=== PATIENT | male | born 1960 | race Caucasian/White ===

== ENCOUNTER 2023-12-15 18:30 | Emergency (ER) | payer SELFPAY ==
[~2023-12-15] VITALS: Ht 182.9 cm; Wt 98.0 kg
[2023-12-15 18:35] VITALS: O2SAT 100
[2023-12-15] MEDS ORDERED: LIDOCAINE HCL/PF 1% 10 MG/ML 5ML VIAL INFIL ONE (19:45)
[2023-12-15] MEDS: IBUPROFEN 600MG TABLET PO ONE (20:36)
[2023-12-15] MEDS ORDERED: IBUP-2029 MT (20:50)
[2023-12-15] MEDS ORDERED: BO1 TP (20:50)
[2023-12-15 21:02] VITALS: BP 131/78; PULSE 71; RESP 18; TEMP 36.83628; O2SAT 99
[2023-12-15] MEDS: BACITRACIN ZINC OINT UDPKT TOP ONE (21:02)
== END 2023-12-15 21:03 | disposition home or self-care (01) ==
LOC: ER 18:30
DX: S61.511A Laceration without foreign body of right wrist, initial encounter (principal); W26.8XXA Contact with other sharp object(s), not elsewhere classified, initial encounter; Y93.89 Activity, other specified; Y92.89 Other specified places as the place of occurrence of the external cause; Y99.8 Other external cause status
CPT/HCPCS: 99283; 12002; J3490